=== PATIENT | female | born 1965 | race Caucasian/White ===

== ENCOUNTER 2017-02-11 10:07 | Emergency (ER) | payer BC ==
[~2017-02-11 10:07] MED LIST: ASPIRIN EC81 MG PO; LIPITOR40 MG PO; NITROSTAT0.4 MG SL
== END 2017-02-11 12:10 | disposition home or self-care (01) ==
LOC: ER1 10:07
DX: S76.011A Strain of muscle, fascia and tendon of right hip, initial encounter (principal); X58.XXXA Exposure to other specified factors, initial encounter; Y92.009 Unspecified place in unspecified non-institutional (private) residence as the place of occurrence of the external cause
CPT/HCPCS: 96372; 99283; J1100

== ENCOUNTER 2017-02-18 17:50 | Emergency (ER) | payer BC | END 2017-02-18 18:39 | disposition home or self-care (01) | LOC: ER1 17:50 | DX: Z53.21 Procedure and treatment not carried out due to patient leaving prior to being seen by health care provider (principal) ==

== ENCOUNTER 2017-02-19 16:52 | Emergency (ER) | payer BC | END 2017-02-19 20:20 | disposition home or self-care (01) | LOC: ER1 16:52 | DX: G89.29 Other chronic pain (principal); M54.40 Lumbago with sciatica, unspecified side; I10 Essential (primary) hypertension; F17.210 Nicotine dependence, cigarettes, uncomplicated; E11.9 Type 2 diabetes mellitus without complications; Z79.84 Long term (current) use of oral hypoglycemic drugs; Z88.1 Allergy status to other antibiotic agents | CPT/HCPCS: 72125; 72131; 96372; 99283; J1885 ==

== ENCOUNTER → 2021-04-13 | Outpatient (CLI) | payer OTHER ==
[~2021-04-13] MED LIST changes: +AZITHROMYCIN500 MG PO
== END ==
LOC: KOH-I 11:04
DX: M25.561 Pain in right knee (principal); M25.562 Pain in left knee; M17.0 Bilateral primary osteoarthritis of knee
CPT/HCPCS: 73562

== ENCOUNTER 2021-11-19 13:29 | Emergency (ER) | payer OTHER ==
[2021-11-19] MEDS ORDERED: MEDROL DOSEPAK 24 MG PO (15:31)
== END 2021-11-19 15:50 | disposition home or self-care (01) ==
LOC: ER1 13:29
DX: M54.42 Lumbago with sciatica, left side (principal); I10 Essential (primary) hypertension; F17.200 Nicotine dependence, unspecified, uncomplicated
CPT/HCPCS: 96372; 99283; J1100; J1885; J2060

== ENCOUNTER 2021-11-25 15:48 | Inpatient (IN) | payer OTHER ==
[~2021-11-25] VITALS: Ht 162.6 cm; Wt 96.2 kg
[~2021-11-25 15:48] MED LIST changes: +MEDROL DOSEPAK 24 MG PO
[2021-11-25 17:00] LABS: HEMOGLOBIN 14.9 gm/dl (12.3-15.3); RED BLOOD COUNT 4.53 M/UL (4.00-5.10); WHITE BLOOD COUNT 12.2 K/UL (4.5-11.0)
[2021-11-25 17:23] LABS: BUN/CREATININE RATIO 12 (0-10)
[2021-11-25] MEDS ORDERED: OMEPRAZOLE40 MG PO (22:17)
[2021-11-25] MEDS ORDERED: PROZAC40 MG PO (22:22)
[2021-11-25] MEDS ORDERED: ENALAPRIL MALEA20 MG PO (22:23)
[2021-11-25] MEDS ORDERED: HYDROCODON-ACE1 EAC6 PO (22:24)
--- NOTE | 2021-11-25 22:38 | NUR ---
CONTACTED MD REGARDING HOMES MEDS IN COMPUTER AND NEED RECONCILED. DAJA STATED GO AHEAD AND CONTINUE WHAT SHE NEEDS TONIGHT. I DO NOT FEEL COMFORTABLE MAKING THAT CALL. MEDS WILL WAIT TO BE RECONCILED BY MD.
[2021-11-26 03:07] LABS: HEMOGLOBIN 13.9 gm/dl (12.3-15.3); RED BLOOD COUNT 4.3 M/UL (4.00-5.10); WHITE BLOOD COUNT 10.8 K/UL (4.5-11.0)
--- NOTE | 2021-11-26 03:51 | NUR ---
CONTACTED MD REGARDING CRITICAL TRIPONIN I, ORDERS ARE TO CONTINUE HEPARIN DRIP, CONSULT WITH CADRIOLOGY AND MONITOR FOR CHEST PAIN.
[2021-11-26] MEDS ORDERED: DULOXETINE HCL60 MG PO (07:43)
[2021-11-26] MEDS ORDERED: TIZANIDINE HCL4 MG PO (09:52)
[2021-11-26] MEDS ORDERED: HYDROXYZINE PAM25 MG PO (09:53)
[2021-11-26] MEDS ORDERED: KETOCONAZOLE120 ML TOP (09:54)
[2021-11-26] MEDS ORDERED: CLARITIN10 MG PO (09:55)
[2021-11-26] MEDS ORDERED: ZYLOPRIM 100 M100 MG PO (09:57)
[2021-11-26] MEDS ORDERED: TOPROL XL50 MG PO (09:59)
[2021-11-26] MEDS ORDERED: CRESTOR40 MG PO (10:00)
[2021-11-26] MEDS ORDERED: LYRICA100 MG PO (22:26)
--- NOTE | 2021-11-27 03:22 | NUR ---
ORDERS PLACED FOR PT TRANSFER OUT TO [facility]. I CONTACTED EMS AND TRIED 3 TIMES TO FAX PAPERWORK FOR TRANSPORT. THE FAX CONFORMATION SHEET SHOWED THE FAX WOULD NOT GO THROUGH BECAUSE IT WAS BUSY. I CONTACTED EMS INTAKE AGAIN AND TOLE HER THAT THE FAX WASNT GOINH THROUGH. SHE SAID THAT EMS WILL CONTACT ME FOR INFO. AFTER PASSING EVENING MEDICATIONS I CONTACTED EMS INTAKE YET AGAIN BECAUSE STILL NO CALL OR CONFORMATION OF TRANSPORT. I ASKED THE WC TO PLEASE CALL AND SEE IF SHE COULD FIND ANYTHING OUT. SHE SAID THAT THEY WOULD CALL WITH THE TRANSPORT TIME. SHE ALSO CALLED AND REPORTED TO [employer] MANAGER THAT WE HAVE BEEN HAVING AN ISUE WITH TRANSPORT. [facility] CALLED AROUND 2300 TO VERIFY THAT THE PATIENT WAS STILL COMING BECAUSE THEY ARE HOLDING THE BED FOR HER. I SAID YES STILL WAITHING ON EMS TO TRANSPORT. ANOTHER CALL WAS PLACED TO EMS, THEY STATED PICKING PT UP IN ER AT [facility] AND TRANSPORTING THEM OUT. WILL BE BACK FOR [facility] AND WILL THEN TRANSFER TO [facility]. WILL CONTINUE TO ADDRESS THIS SITUATION.
--- NOTE | 2021-11-27 04:45 | NUR ---
0412 METAL ENGINEERING PROCESS WORKER CALLED TO UPDATE ME ON THE EMS SITUATION. TRANSPORT SHOULD ARRIVE ANY TIME FROM 0700 ON TODAY TO TRANSPORT PATIENT TO [facility]. D/T STAFFING ISSUES THEY WERE NOT ABLE TO COMPLETE THE TRANSFER UNTIL THEN. I CONTACTED [facility] AND SPOKE TO TABBY, I UPDATED TABBY WITH THE SAME INFORMATION I RECIEVED FROM METAL ENGINEERING PROCESS WORKER.
--- NOTE | 2021-11-27 06:30 | NUR ---
DURING BEDSIDE REPORT SHIFT CHANGE (MY ON COMING SHIFT (11/26/21) THE PATIENT WAS JUST COMING IN FROM OUTSIDE SMOKING. SHE HAD TAKEN HER IV POLE WITH THE HEPARIN DRIP. I EXPLAINED TO HER THAT SHE IS TO BED ON BED REST AND IS AWAITING TRANSPORT TO [facility] FOR OPEN HEART SURGERY. THAT WE WERE UNABLE TO DO HER NEEDED INTERVENTIONS HERE. SHE REFRAINED FROM GOING OUT TO SMOKE THE REST OF MY SHIFT
== END 2021-11-27 10:45 | disposition short-term general hospital (02) | DRG 282 ==
LOC: ER1 15:48 → M/S 20:31 → CDU 20:31 → M/S 21:36
PROVIDERS: Emergency Medicine; ADMIT Internal Medicine
PROC: 4A023N7 Measurement of Cardiac Sampling and Pressure, Left Heart, Percutaneous Approach (ICD-10-PCS; principal; 2021-11-26)
PROC: B2111ZZ Fluoroscopy of Multiple Coronary Arteries using Low Osmolar Contrast (ICD-10-PCS; 2021-11-26)
DX: I21.4 Non-ST elevation (NSTEMI) myocardial infarction (principal); I10 Essential (primary) hypertension; Z20.822 Contact with and (suspected) exposure to COVID-19; E78.5 Hyperlipidemia, unspecified; E78.00 Pure hypercholesterolemia, unspecified; F17.210 Nicotine dependence, cigarettes, uncomplicated; R73.03 Prediabetes; G89.29 Other chronic pain; M54.50 Low back pain, unspecified; Z79.82 Long term (current) use of aspirin; Z82.49 Family history of ischemic heart disease and other diseases of the circulatory system; Z88.1 Allergy status to other antibiotic agents; Z88.0 Allergy status to penicillin; Z98.891 History of uterine scar from previous surgery; Z88.2 Allergy status to sulfonamides
CPT/HCPCS: 36415; 71045; 80053; 80061; 82550; 82553; 83036; 83874; 84439; 84443; 84484; 85025; 85610; 85730; 93005; 96374; 96375; 99152; 99153; 99285; C1769; C1894; J0583; J1644; J2250; J2270; J2405; J3010; J7030; Q9967; U0002

== ENCOUNTER → 2022-02-16 | Outpatient (CLI) | payer OTHER ==
[~2022-02-16] MED LIST changes: +CLARITIN10 MG PO; +CRESTOR40 MG PO; +DULOXETINE HCL60 MG PO; +ENALAPRIL MALEA20 MG PO; +HYDROCODON-ACE1 EAC6 PO; +HYDROXYZINE PAM25 MG PO; +KETOCONAZOLE120 ML TOP; +LYRICA100 MG PO; +OMEPRAZOLE40 MG PO; +PROZAC40 MG PO; +TIZANIDINE HCL4 MG PO; +TOPROL XL50 MG PO; +ZYLOPRIM 100 M100 MG PO
== END ==
LOC: MRI 08:52
DX: M51.36 Other intervertebral disc degeneration, lumbar region (principal); M51.26 Other intervertebral disc displacement, lumbar region
CPT/HCPCS: 72148